=== PATIENT | male | born 1945 | race Hispanic/Latino ===

== ENCOUNTER 2017-07-23 09:19 | Inpatient (IN) | payer BC ==
--- NOTE | 2017-07-23 09:50 | ED PDOC ---
Arrival/HPI - General Chief Complaint: Shortness Of Breath Time Seen by Provider: 07/23/17 09:22 Historian: Patient, Spouse, Other - History of Present Illness Narrative History of Present Illness (Text): 07/23/17 09:43 A 72 year old male, whose past medical history includes neurostimulator for tremors, CHF on lasix, CAD, pacemaker, diabetes, hypertension, and prostate cancer, [place] department [place] for shortness of breath since last night. Patient was seen by a physician [place] and treated with Tylenol 10mg, Rocephin 2mg, Lasix 20mg, and Albuterol treatments. Patient reports also taking Aspirin prior to arrival. It was reported patient had a fever of 103 last night, which resolved. Patient denies any nausea, vomiting, abdominal pain, chest pain, cough or any other complaints. 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 Time/Duration: Other (last night) Past Medical History - Provider Review Nursing Documentation Reviewed: Yes - Infectious Disease Hx of Infectious Diseases: None - Cardiac Hx Congestive Heart Failure: Yes Hx Hypertension: Yes Hx Pacemaker: Yes - Musculoskeletal/Rheumatological Other/Comment: neuro stimulator - Psychiatric Hx Substance Use: No - Surgical History Hx Open Heart Surgery: Yes - Anesthesia Hx Anesthesia Reactions: No Family/Social History - Physician Review Nursing Documentation Reviewed: Yes Family/Social History: No Known Family HX Smoking Status: Former Smoker Hx Alcohol Use: Yes Frequency of alcohol use: Socially Hx Substance Use: No Allergies/Home Meds Allergies/Adverse Reactions: Allergies topiramate [From Topamax] Adverse Reaction (Verified 07/23/17 09:44) NAUSEA Home Medications: Home Meds Medication Instructions Recorded Confirmed Aspirin [Ecotrin] 81 mg PO DAILY 07/23/17 07/23/17 B12 1000 1,000 mg PO DAILY 07/23/17 07/23/17 D3 1000 1,000 iu PO DAILY 07/23/17 07/23/17 Digoxin [Lanoxin] 0.125 mg PO DAILY 07/23/17 07/23/17 Furosemide [Lasix] 20 mg PO DAILY 07/23/17 07/23/17 Kcl 10meq Po 10 meq PO DAILY 07/23/17 07/23/17 Lisinopril [Zestril] 2.5 mg PO DAILY 07/23/17 07/23/17 Magnesium [Magnesium Elemental] 250 mg PO DAILY 07/23/17 07/23/17 Multivitamin (MVI) [M.v.i-12 10 Ml] 1 tab PO DAILY 07/23/17 07/23/17 Prasugrel [Effient] 10 mg PO DAILY 07/23/17 07/23/17 Primidone [Mysoline] 100 mg PO TID 07/23/17 07/23/17 Propranolol [Inderal] 20 mg PO TID 07/23/17 07/23/17 Ranolazine [Ranexa] 1,000 mg PO BID 07/23/17 07/23/17 Simvastatin [Flolipid] 40 mg PO DAILY 07/23/17 07/23/17 Verapamil [Verapamil HCl] 240 mg PO DAILY 07/23/17 07/23/17 metFORMIN [glucOPHAGE] 1,000 mg PO BID 07/23/17 07/23/17 Review of Systems - Physician Review All systems were reviewed & negative as marked: Yes - Review of Systems Constitutional: Fevers (resolved) Respiratory: SOB. absent: Cough Cardiovascular: absent: Chest Pain Gastrointestinal: absent: Abdominal Pain, Nausea, Vomiting Physical Exam Vital Signs Reviewed: Yes Vital Signs Temp Pulse Resp BP Pulse Ox 07/23/17 11:09 70 17 151/78 H 98 07/23/17 10:14 20 07/23/17 09:25 97.6 F 114 H 20 144/67 95 Temperature: Afebrile Pulse: Tachycardic Respiratory Rate: Normal Appearance: Positive for: Well-Appearing, Non-Toxic, Comfortable Pain Distress: None Mental Status: Positive for: Alert and Oriented X 3 - Systems Exam Head: Present: Atraumatic, Normocephalic Pupils: Present: PERRL Extroacular Muscles: Present: EOMI Conjunctiva: Present: Normal Mouth: Present: Moist Mucous Membranes Neck: Present: Normal Range of Motion. No: JVD Respiratory/Chest: Present: Good Air Exchange, Rales (right lower lung field). No: Respiratory Distress, Accessory Muscle Use Cardiovascular: Present: Regular Rate and Rhythm, Normal S1, S2. No: Murmurs Abdomen: Present: Normal Bowel Sounds. No: Tenderness, Distention, Peritoneal Signs Back: Present: Normal Inspection Upper Extremity: Present: Normal Inspection. No: Cyanosis, Edema Lower Extremity: Present: Normal Inspection. No: Edema Neurological: Present: GCS=15, CN II-XII Intact, Speech Normal Skin: Present: Warm, Dry, Normal Color. No: Rashes Psychiatric: Present: Alert, Oriented x 3, Normal Insight, Normal Concentration Medical Decision Making ED Course and Treatment: 07/23/17 09:43 Impression: A 72 year old male with shortness of breath. On exam, crackles. r/o PNA vs CHF Plan: -- Chest xray -- EKG -- Labs -- Blood and Urine culture -- Urinalysis -- Reassess and disposition Progress Notes: EKG shows paced rhythm at 70 BPM. Interpreted by me. 07/23/17 10:[address] Rosario, accepts patient admission for CHF, rule out sepsis. Requests Dr. Mooney for cardiac consult. Report Date : 07/23/2017 11:14:07 Procedure:Chest xray Dictator : Mani Keene MD IMPRESSION: No active disease. - Lab Interpretations Lab Results: 07/23/17 09:53 07/23/17 09:53 Lab Results 07/23/17 09:53: Sodium 140, Chloride 100, Potassium 4.6, Carbon Dioxide 25, Anion Gap 20, BUN 39 H, Creatinine 1.4, Est GFR ( Amer) > 60, Est GFR ( Non-Af Amer) 50, Random Glucose 215 H, Calcium 9.1, Phosphorus 4.3, Magnesium 2.0, Total Bilirubin 0.6, AST 34, ALT 38, Alkaline Phosphatase 73, Troponin I < 0.01, NT-Pro-B Natriuret Pep 1830 H, Total Protein 6.6, Albumin 3.9, Globulin 2.7, Albumin/Globulin Ratio 1.4 07/23/17 09:53: pO2 47, VBG pH 7.31 L, VBG pCO2 51.0, VBG HCO3 25.7, VBG Total CO2 27.3, VBG O2 Sat (Calc) 84.0 H, VBG Base Excess -1.2 L, VBG Potassium 4.9, Sodium 136.0, Chloride 102.0, Glucose 239 H, Lactate 2.8 H, FiO2 21.0, Venous Blood Potassium 4.9 07/23/17 09:53: PT 12.7 H, INR 1.18 H, APTT 30.4 07/23/17 09:53: WBC 10.0, RBC 3.75, Hgb 11.5 L, Hct 34.9 L, MCV 93.1, MCH 30.7, MCHC 33.0, RDW 13.7, Plt Count 173, MPV 10.7, Gran % 74.4 H, Lymph % (Auto) 12.5 L, Haines % (Auto) 10.5 H, Eos % (Auto) 2.4, Baso % (Auto) 0.2, Gran # 7.47 H , Lymph # 1.3, Haines # 1.1 H, Eos # 0.2, Baso # 0.02 I have reviewed the lab results: Yes - RAD Interpretation Radiology Orders: 07/23/17 09:46 CHEST PORTABLE [RAD] Stat - Medication Orders Current Medication Orders: Acetaminophen (Tylenol 325mg Tab) 650 mg PO Q4H PRN PRN Reason: Fever >100.5 F Albuterol/Ipratropium (Duoneb 3 Mg/0.5 Mg (3 Ml) Ud) 3 ml IH Q4H PRN PRN Reason: Shortness of Breath Ondansetron HCl (Zofran Inj) 4 mg IVP Q4H PRN PRN Reason: Nausea/Vomiting - Scribe Statement The provider has reviewed the documentation as recorded by the Curt Minaya Provider Scribe Attestation: All medical record entries made by the Scribe were at my direction and personally dictated by me. I have reviewed the chart and agree that the record accurately reflects my personal performance of the history, physical exam, medical decision making, and the department course for this patient. I have also personally directed, reviewed, and agree with the discharge instructions and disposition. Disposition/Present on Arrival - Present on Arrival Any Indicators Present on Arrival: No History of DVT/PE: No History of Uncontrolled Diabetes: No Urinary Catheter: No History of Decub. Ulcer: No History Surgical Site Infection Following: None - Disposition Have Diagnosis and Disposition been Completed?: Yes Diagnosis: Congestive heart failure (CHF) Disposition: HOSPITALIZED Disposition Time: 10:27 Patient Plan: Admission Condition: FAIR
[2017-07-23 10:00] LABS: VENOUS BLOOD GAS BASE EXCESS -1.2 mmol/L (0.0-2.0); VENOUS BLOOD PH 7.31 (7.32-7.43)
[2017-07-23 10:07] LABS: BASO # 0.02 K/mm3 (0.0-2.0); BASO % 0.2 % (0.0-3.0); EOS # 0.2 (0.0-0.7); EOS % 2.4 % (1.5-5.0); GRAN # 7.47 (1.4-6.5); GRAN % 74.4 % (50.0-68.0); HEMATOCRIT 34.9 % (42.0-52.0); LYMPH # 1.3 (1.2-3.4); LYMPH % 12.5 % (22.0-35.0); MEAN CELL VOLUME 93.1 fl (80.0-105.0); MEAN CORPUSCULAR HEMOGLOBIN 30.7 pg (25.0-35.0); MEAN PLATELET VOLUME 10.7 fl (7.0-11.0); MONO # 1.1 (0.1-0.6); MONO % 10.5 % (1.0-6.0); RED CELL DISTRIBUTION WIDTH 13.7 % (11.5-14.5)
[2017-07-23 10:10] LABS: ALB/GLOB RATIO 1.4 (1.1-1.8); ALKALINE PHOSPHATASE 73 U/L (38-126); ALT/SGPT 38 U/L (7-56); AST/SGOT 34 U/L (17-59); BILIRUBIN,TOTAL 0.6 mg/dL (0.2-1.3); BLOOD UREA NITROGEN 39 mg/dL (7-21); CALCIUM 9.1 mg/dL (8.4-10.5); CARBON DIOXIDE 25 mmol/L (21-33); CHLORIDE 100 mmol/L (98-107); GFR AFRICAN-AMERICAN > 60; GLUCOSE,RANDOM 215 mg/dL (70-110); INR 1.18 (0.93-1.08); PARTIAL THROMBOPLASTIN TIME 30.4 Seconds (23.7-30.8); PHOSPHOROUS 4.3 mg/dL (2.5-4.5); POTASSIUM 4.6 mmol/L (3.6-5.0); SODIUM 140 mmol/L (132-148); TOTAL PROTEIN 6.6 g/dL (5.8-8.3)
[2017-07-23 10:22] LABS: TROPONIN I < 0.01 ng/mL
--- NOTE | 2017-07-23 11:15 | RAD ---
HISTORY: Sepsis patient. Technique: Single view portable semi erect @ 10:00 COMPARISON: No prior. FINDINGS: LUNGS: No active pulmonary disease. PLEURA: No significant pleural effusion identified, no pneumothorax apparent. CARDIOVASCULAR: Cardiomegaly. No evidence of acute, significant cardiovascular disease. Position/ configuration of pacemaker Satisfactory. OSSEOUS STRUCTURES: No significant abnormalities. VISUALIZED UPPER ABDOMEN: Normal. OTHER FINDINGS: None. IMPRESSION: No active disease. Please note: No preliminary report/ innterpretation of this examination provided by emergency department personnel.
[2017-07-23] MEDS ORDERED: Albuterol-Ipratrop 3 mg / 0.5 (3 ml) UD IH PRN (11:42)
[2017-07-23] MEDS ORDERED: Iohexol 350 MG/100 ML VIAL ONE (13:05)
--- NOTE | 2017-07-23 13:59 | CT ---
PROCEDURE: CT Chest with contrast (Pulmonary Angiogram) HISTORY: r/o PE COMPARISON: July 23, 2017. Single-view chest TECHNIQUE: Axial computed tomography images were obtained of the chest in the pulmonary arterial phase of enhancement. Coronal and sagittal reformatted images were created and reviewed. Maximum intensity projection (MIP) reconstructed images in the following planes: Coronal only Intravenous contrast dose: 100 cc Omnipaque 350 Mean Hounsfield unit values in the main pulmonary artery: 337.39 Radiation dose: Total exam DLP = 605.59 mGy-cm. This CT exam was performed using one or more of the following dose reduction techniques: Automated exposure control, adjustment of the mA and/or kV according to patient size, and/or use of iterative reconstruction technique. FINDINGS: PULMONARY ARTERIES: Unremarkable. No pulmonary embolism. AORTA: No acute findings. No thoracic aortic aneurysm. LUNGS: Increased interstitial lung disease which is diffuse and mild and may represent interstitial edema. Lower airway disease/ bronchitis could also assume this appearance. No nodule, mass or pulmonary consolidation. PLEURAL SPACES: Unremarkable. No effusion or pneuomothorax. HEART: Unremarkable. No cardiomegaly. No significant pericardial effusion. LYMPH NODES: No lymphadenopathy. BONES, CHEST WALL: Unremarkable. No fracture or destructive lesion OTHER FINDINGS: Cholelithiasis without CT evidence of acute cholecystitis. IMPRESSION: Unremarkable CT pulmonary angiogram. No pulmonary embolus. Lower airway disease/bronchitis/interstitial lung disease. No discrete infiltrates identified. Cholelithiasis without CT evidence of acute cholecystitis.
[2017-07-23] MEDS: Enoxaparin 60 mg Syringe SC SCH (14:45)
--- NOTE | 2017-07-23 15:15 | US ---
HISTORY: Leg pain and swelling. Evaluate for DVT PHYSICIAN(S): Han West MD. TECHNIQUE: Duplex sonography and color-flow Doppler with graded compression were used to evaluate the deep venous systems of both lower extremities. FINDINGS: The visualized deep venous systems of both lower extremities are sonographically normal and compressible. Normal wave forms and augmentation are seen. There is no sonographic evidence for deep venous thrombosis in the visualized segments of both lower extremities. IMPRESSION: No sonographic evidence for deep venous thrombosis in the visualized segments of both lower extremities.
[2017-07-23 15:59] VITALS: BMI 26.5
[2017-07-23] MEDS ORDERED: Pneumococcal 23-Valent Vaccine IM ONE (15:59)
--- NOTE | 2017-07-23 19:21 | CON ---
DATE: CARDIOLOGY CONSULT REASON FOR CONSULTATION: Shortness of breath. HISTORY OF PRESENT ILLNESS: The patient is 72 years old, white male who has a history of coronary artery disease, status post triple coronary artery bypass surgery in 1998, followed by double bypass surgery in 2012, history of coronary stenting. The patient does not recall the most recent one; however, he has a card of an LAD stenting, with evaluating the stent dating back to 2008. The patient also has neurostimulator placement for tremors. The patient has a dual chamber pacemaker placement in the past. The patient lives in the town near [place], [place] and he arrived last night from [facility] where he was in a cruise ship recently. The patient denies any dizziness or syncope. The patient denies any retrosternal chest pain. The patient states that he gets more comfortable breathing while standing up. PAST MEDICAL HISTORY: History of hypertension, diabetes mellitus, coronary artery disease, status post coronary artery bypass surgery twice in the past, history of coronary stenting, the patient does not recall the most recent one, history of dual chamber pacemaker placement, history of prostatic cancer, history of Parkinsonism. MEDICATIONS: The patient is currently on albuterol inhaler q.4 hours, Tylenol 2 tablets q.4 hours p.r.n. for fever, Zofran 4 mg intravenously q.4 hours p.r.n. The patient's home medications include multivitamin, aspirin 81 mg once a day, Ranexa 1 g twice a day, Lasix 20 mg orally daily, metformin 500 mg twice a day, verapamil 240 mg once a day, simvastatin 40 mg once a day, Inderal 20 mg once a day, digoxin 0.125 mg once a day, Effient 10 mg once a day, lisinopril 2.5 mg once a day, magnesium 250 mg p.o. once a day, KCl 10 mEq once a day. REVIEW OF SYSTEMS: No palpitation. No dizziness. No recent syncope. PHYSICAL EXAMINATION: GENERAL: The patient is an elderly male who does not appear to be in acute distress. VITAL SIGNS: Blood pressure 151/78, heart rate 70, initial heart rate was 114, temperature 97.6, respirations 20. HEENT: Normocephalic. CHEST: Bilateral rhonchi. HEART: S1 and S2 regular. ABDOMEN: Soft. EXTREMITIES: 1+ pitting edema. LABORATORY DATA: Hemoglobin and hematocrit 11.5 and 34.9, white count and platelet count are within normal limits. SMA-7 is within normal limits except for glucose of 215 and BUN of 39. One set of troponins is negative. ProBNP is 1830. INR is 1.18. Chest x-ray revealed borderline cardiomegaly with prominent bronchovesicular markings. EKG revealed a ventricular paced rhythm. ASSESSMENT: 1. Shortness of breath, rule out underlying congestive heart failure. 2. Rule out pulmonary infarction. 3. Coronary artery disease, status post coronary artery bypass surgery twice in the past with history of coronary stenting following that last coronary artery bypass surgery in 2012. 4. History of Parkinsonism. RECOMMENDATIONS: Admit the patient to telemetry. Start therapy with subcutaneous Lovenox. Start intervenous Lasix at 40 mg daily and resume the rest of the patient's home medications. Monitor EKGs and serial cardiac enzymes. Obtain an echocardiogram and CT angio of the chest to rule out pulmonary embolism. Cristino Craig MD
--- NOTE | 2017-07-23 21:10 | CP.PCM.HP ---
History of Present Illness - History of Present Illness History of Present Illness: Covering Internal Medicine History and Physical: July 23, 2017 72 yo male with shortness of breath and a reported fever of 103.0 F. The patient has not been feeling well for the last few days of his cruise. The patient took a cruise from [place] to [place] with stops in [place] and [place]. The patient has several medical issues and numerous medications. He did not stay with his diet during the cruise. He was given Tylenol, Rocephin, lasix, and albuterol on the cruise ship. No fevers recorded during the time he was seen in [place]. He has been urination a large amount since admission. Currently feels well. PMHx: HTN, DM, essential tremors, prostate cancer history, CAD, CHF PSHx: Prostate cancer excision. CABG in 1998 and 2012. AICD placement x2 (last one in 2012). Neurostimulator in right chest. Allergies: topiramate Social Hx: Ex-smoker, Social EtOH, no illicit drug use Active Medications Acetaminophen (Tylenol 325mg Tab) 650 mg PO Q4H PRN PRN Reason: Fever >100.5 F Albuterol/Ipratropium (Duoneb 3 Mg/0.5 Mg (3 Ml) Ud) 3 ml IH Q4H PRN PRN Reason: Shortness of Breath Enoxaparin Sodium (Lovenox) 60 mg SC Q12H [facility] PRN Reason: Protocol Last Admin: 07/23/17 14:45 Dose: 60 mg Furosemide (Lasix) 40 mg IVP DAILY [facility] Last Admin: 07/23/17 14:44 Dose: 40 mg Ondansetron HCl (Zofran Inj) 4 mg IVP Q4H PRN PRN Reason: Nausea/Vomiting Family Hx: none given ROS: shortness of breath, weakness, fever? No chest pain, melena, hematuria, hematemesis, hematochezia, depression, anxiety , diarrhea, headaches, vision loss, hearing loss, loss of consciousness. Present on Admission - Present on Admission Any Indicators Present on Admission: Yes History of Uncontrolled Diabetes: Yes Past Patient History - Infectious Disease Hx of Infectious Diseases: None - Past Social History Smoking Status: Former Smoker - CARDIAC Hx Cardiac Disorders: (cad) Hx Congestive Heart Failure: Yes Hx Hypercholesterolemia: Yes Hx Hypertension: Yes Hx Pacemaker: Yes Other/Comment: open heart 1998 triple bypass, 2012 double bypass - NEUROLOGICAL Hx Neurological Disorder: Yes (tremors) Other/Comment: neuro stimulator for tremors rcw - ENDOCRINE/METABOLIC Hx Diabetes Mellitus Type 2: Yes - HEMATOLOGICAL/ONCOLOGICAL Hx Cancer: Yes (prostate) Hx Chemotherapy: No (no chemo no radiation) Other/Comment: prostatectomy, latest psa normal - MUSCULOSKELETAL/RHEUMATOLOGICAL Hx Falls: No - PSYCHIATRIC Hx Substance Use: No - SURGICAL HISTORY Hx Open Heart Surgery: Yes (1998. and 2012) - ANESTHESIA Hx Anesthesia Reactions: No Meds Allergies/Adverse Reactions: Allergies Allergy/AdvReac Type Severity Reaction Status Date / Time topiramate [From Topamax] AdvReac NAUSEA Verified 07/23/17 09:44 Physical Exam - Constitutional Appears: Non-toxic, No Acute Distress, Chronically Ill - Head Exam Head Exam: ATRAUMATIC, NORMOCEPHALIC - Eye Exam Eye Exam: EOMI, PERRL Pupil Exam: NORMAL ACCOMODATION, PERRL - ENT Exam ENT Exam: Mucous Membranes Moist, Normal External Ear Exam, TM's Normal Bilaterally - Neck Exam Neck exam: Positive for: Full Rom, Normal Inspection - Respiratory Exam Respiratory Exam: Decreased Breath Sounds, NORMAL BREATHING PATTERN. absent: Rales, Rhonchi, Wheezes - Cardiovascular Exam Cardiovascular Exam: REGULAR RHYTHM, RRR, +S1, +S2 - GI/Abdominal Exam GI & Abdominal Exam: Normal Bowel Sounds, Soft. absent: Distended, Tenderness - Extremities Exam Extremities exam: Positive for: full ROM, pedal edema Additional comments: tremor in upper extremities that worsens with activity. - Neurological Exam Neurological exam: Alert, CN II-XII Intact, Oriented x3 Additional comments: baseline arm tremors bilaterally. - Skin Skin Exam: Intact, Normal Color Results - Vital Signs Recent Vital Signs: Last Vital Signs Temp 98 F 07/23/17 16:50 Pulse 73 07/23/17 18:00 Resp 20 07/23/17 16:50 BP 153/65 H 07/23/17 16:50 Pulse Ox 98 07/23/17 11:09 - Labs Result Diagrams: 07/23/17 09:53 07/23/17 09:53 Assessment & Plan - Assessment and Plan (Free Text) Assessment: 72 yo male with SOB, fatigue, weakness, and one episode of fever improving with Lasix. Extensive medical history with DM, HTN, CAD, essential tremors. Called Cardiology consult with Dr. Mooney. If cleared by cardiology, can discharge home. Would not start antibiotics at this point in time. Patient currently feels well and he performing his normal activities. Continue medication of DM, Hypertension, CAD, and tremors.
--- NOTE | 2017-07-23 22:33 | CARD ---
APPROVED REPORT EKG Measurement Heart [id number] <Conclusion> Poor data quality, interpretation may be adversely affected AV sequential or dual chamber electronic pacemaker
[2017-07-24] MEDS: Enoxaparin 60 mg Syringe SC SCH (01:30)
[2017-07-24 06:57] VITALS: BP 125/67; RESP 22; TEMP 98.6; O2SAT 95
[2017-07-24] MEDS ORDERED: Verapamil 240 mg ER Tab PO SCH (10:00)
[2017-07-24 11:53] VITALS: PULSE 70
--- NOTE | 2017-07-24 14:07 | PN ---
DATE: SUBJECTIVE: The patient denies any shortness of breath or chest pain. PHYSICAL EXAMINATION: VITAL SIGNS: Blood pressure of 125/67, heart rate of 69, temperature of 98.6, and respirations of 22. HEENT: Normocephalic. CHEST: Clear. HEART: S1 and S2 regular. EXTREMITIES: No edema. DIAGNOSTIC DATA: Venous Doppler of lower extremity, no evidence of DVT. CT angiography of the chest, no pulmonary embolus, cholelithiasis without CT evidence of acute cholecystitis. ASSESSMENT: 1. Shortness of breath, rule out underlying left ventricular systolic function. 2. Coronary artery disease, status post coronary artery bypass surgery twice in the past followed by coronary stenting. 3. Parkinsonism. 4. Diabetes mellitus and hypertension. RECOMMENDATIONS: Continue current Zestril 2.5 mg daily, change subcutaneous Lovenox to 40 mg subcutaneously daily. Echocardiography study is still pending. Cristino Craig MD
[2017-07-25] MEDS ORDERED: Enoxaparin 40 mg Syringe SC SCH (10:00)
== END 2017-07-24 13:55 | disposition home or self-care (01) | DRG 293 ==
LOC: ED 09:19 → ERH 10:26 → 2RNO 11:47
PROVIDERS: ADMIT Family Medicine; ATTEND Family Medicine
DX: I11.0 Hypertensive heart disease with heart failure (principal); G20 Parkinson's disease; E11.9 Type 2 diabetes mellitus without complications; I50.9 Heart failure, unspecified; G25.0 Essential tremor; I25.10 Atherosclerotic heart disease of native coronary artery without angina pectoris; Z79.82 Long term (current) use of aspirin; Z79.84 Long term (current) use of oral hypoglycemic drugs; Z85.46 Personal history of malignant neoplasm of prostate; Z95.1 Presence of aortocoronary bypass graft; Z87.891 Personal history of nicotine dependence; Z95.810 Presence of automatic (implantable) cardiac defibrillator; Z95.5 Presence of coronary angioplasty implant and graft